=== PATIENT | male | born 1995 | race African-American/Black ===

== ENCOUNTER 2018-12-06 18:27 | Emergency (ER) | payer OTHER ==
[2018-12-06] MEDS ORDERED: Ketorolac Tromethamine 60 MG/2 ML VIAL ONE (19:16)
[2018-12-06] MEDS ORDERED: predniSONE 20 MG TAB ONE (19:16)
[2018-12-06] MEDS ORDERED: HYDROcodone/Acetaminophen 5/325 mg Tablet ONE (19:16)
== END 2018-12-06 19:35 | disposition home or self-care (01) ==
LOC: NAV ERS 18:27
DX: M54.5 Low back pain (principal); E11.9 Type 2 diabetes mellitus without complications; Z79.84 Long term (current) use of oral hypoglycemic drugs
CPT/HCPCS: 96372; 99283; J1885; J7512

== ENCOUNTER 2019-11-14 02:27 | Emergency (ER) | payer OTHER ==
[2019-11-14 17:04] LABS: SARS-CoV-2 MS2 Positive; SARS-CoV-2 N Gene Negative; SARS-CoV-2 S Gene Negative; SARS-CoV-2 by NAA Not Detected (NotDetected); SARS-CoV-2 orf1ab Negative
== END 2019-11-14 03:26 | disposition home or self-care (01) ==
LOC: NAV ERS 02:27
DX: J03.90 Acute tonsillitis, unspecified (principal); E11.9 Type 2 diabetes mellitus without complications; F17.210 Nicotine dependence, cigarettes, uncomplicated; Z79.84 Long term (current) use of oral hypoglycemic drugs; Z20.828 Contact with and (suspected) exposure to other viral communicable diseases
CPT/HCPCS: 87081; 87430; 87635; 99283; U0003